=== PATIENT | male | born 1985 | race Caucasian/White ===

== ENCOUNTER 2017-11-07 14:08 | Emergency (ER) | payer OTHER ==
[2017-11-07] MEDS ORDERED: TDAP ADULT 0.5 ML INJ (BOOSTRIX) IM ONE (14:23)
--- NOTE | 2017-11-07 14:23 | EDPHY ---
General Time Seen by Provider: 11/07/17 14:12 Narrative: CHIEF COMPLAINT: Laceration HISTORY OF PRESENT ILLNESS: Patient presents in custody of [facility]. He complains of left finger laceration. He states that he cut it using a meat soaker just prior to arrival within the past hour. This involves the tuft the left ring finger, volar side. He states that he "cut right off."No numbness, tingling or weakness. There was moderate bleeding noted. No difficulty bending or straightening the finger. No injury elsewhere. No other associated complaints or modifying factors. TIME OF INJURY: Less than 1 hr prior to arrival TETANUS STATUS: Questionable MEDICAL/SURGICAL/SOCIAL HISTORY: Previous inguinal hernia status post repair. Currently incarcerated REVIEW OF SYSTEMS: Ten systems reviewed and are negative unless otherwise noted in the HPI EXAMINATION General Appearance: Alert, no distress. Well-developed well-nourished. Head: normocephalic, atraumatic Cardiovascular: Symmetric radial pulses. Brisk cap refill on all 5 fingers left hand. Neurological: A&O, sensory symmetric, interossei strength symmetric Skin: Warm and dry, no rash. There is a 2 subcutaneously cm area of tissue avulsion on the left ring finger distal phalanx, volar pad. There is some capillary bleeding. No pulsatile bleeding. No foreign body. No exposure of the underlying distal phalanx. Extremities: Tenderness on the left ring finger over the distal phalanx in the area of laceration. There is full range of motion including flexion of the digitorum superficialis and profundus without deficit. DIFFERENTIAL DIAGNOSES: Including but not limited to finger tip avulsion, skin laceration, skin avulsion , tuft fracture MDM: 2:20 p.m. Left ring finger laceration with distal. No bony involvement. He was neurovascular intact pre digital block with full range of motion including the superficialis and profundus. No repairable laceration and we will irrigate, apply surgifoam and obtain hemostasis. 2:55 p.m. Patient re-evaluated. The dressing has been on for 30 min and there is no bleeding. He is resting comfortably in no acute distress. Discharged in stable condition to [facility] PROCEDURE: Digital Block Indication: Finger laceration/avulsion Consent: Verbal Location: Left ring finger Anesthesia: Lidocaine 1% plain, 0.25% Marcaine plain, 5mL Description: Base of the finger was prepped. The above was infused without difficulty. Tolerated well. Good anesthesia. Complications: None SUPERVISION: This patient was independently evaluated without direct involvement of or examination by the attending physician. ED Precautions: Worsening pain. Erythema, edema, cyanosis, pallor, paresthesia or anesthesia. - Objective Vital Signs: Initial Vital Signs Temperature (C) 98.1 F 11/07/17 14:27 Heart Rate 74 11/07/17 14:27 Respiratory Rate 16 11/07/17 14:27 Blood Pressure 128/90 H 11/07/17 14:27 O2 Sat (%) 99 11/07/17 14:27 O2 Delivery Mode Room Air Allergies/Adverse Reactions: No Known Allergies Allergy (Unverified 11/07/17 14:26) Home Medications: Medication Instructions Recorded NK [No Known Home Meds] 11/07/17 Medications Given: Discontinued Medications Diphtheria/Tetanus/Acell Pertussis (Boostrix) 0.5 ml IM .ONCE ONE Stop: 11/07/17 14:24 Last Admin: 11/07/17 14:39 Dose: 0.5 ml Departure - Departure Disposition: Law Enforcement/Court/Half-Way Clinical Impression: Avulsion of fingertip Qualifiers: Encounter type: initial encounter Qualified Code(s): S61.209A - Unspecified open wound of unspecified finger without damage to nail, initial encounter Laceration of left ring finger Qualifiers: Encounter type: initial encounter Damage to nail status: without damage Foreign body presence: without foreign body Qualified Code(s): S61.215A - Laceration without foreign body of left ring finger without damage to nail, initial encounter Condition: Good Instructions: Skin Avulsion (ED) Additional Instructions: 1. Daily wound care as discussed and demonstrated 2. Follow up with wound care or hand surgeon for definitive care 3. ED precautions for any worsening pain, numbness, tingling, bleeding, signs of infection as discussed Referrals: John Cantu MD [Medical Doctor] - As per Instructions [facility] [Clinic] - As per Instructions
[2017-11-07 15:39] VITALS: BP 122/89
== END 2017-11-07 15:31 ==
LOC: EEVIPCON 14:08
PROC: 3E0T3BZ Introduction of Anesthetic Agent into Peripheral Nerves and Plexi, Percutaneous Approach (ICD-10-PCS; principal; 2017-11-07)
DX: S61.215A Laceration without foreign body of left ring finger without damage to nail, initial encounter (principal); Z23 Encounter for immunization; W26.8XXA Contact with other sharp object(s), not elsewhere classified, initial encounter